=== PATIENT | male | born 2000 | race Caucasian/White ===

== ENCOUNTER 2022-04-19 00:38 | Emergency (ER) | payer MEDICAID ==
[~2022-04-19] VITALS: Ht 188 cm; Wt 70.8 kg
--- NOTE | 2022-04-19 01:00 | NUR ---
Dr. White at bedside. MSE in progress.
[2022-04-19] MEDS ORDERED: DOXYCYCLINE HYCLATE 100 MG TABLET PO ONE (01:30)
[2022-04-19] MEDS ORDERED: DOXYCYCLINE HYCLATE 100 MG TABLET ONE (01:31)
[2022-04-19] MEDS ORDERED: DOXY-326 PO (01:31)
--- NOTE | 2022-04-19 01:35 | NUR ---
Patient discharged to home in stable condition. A/O x 4. NAD noted. Ambulatory with a steady gait. All belongings with patient. Written and verbal after care instructions given. Patient verbalizes understanding of instructions. Stressed follow up or return to ER for worsening s/s.
== END 2022-04-19 01:36 | disposition home or self-care (01) ==
LOC: ER 00:55
DX: A56.01 Chlamydial cystitis and urethritis (principal)
CPT/HCPCS: A4663